=== PATIENT | female | born 1965 | race Caucasian/White ===

== ENCOUNTER 2022-09-05 18:59 | Emergency (ER) | payer OTHER ==
[2022-09-05] MEDS ORDERED: Zofran 4 MG/2 ML VIAL ONE (19:02)
[2022-09-05] MEDS ORDERED: Hydromorphone 1 mg/ml Injection ONE ×2 (19:02→20:11)
[2022-09-05] MEDS ORDERED: Zofran 4 MG/2 ML VIAL IV ONE (19:06)
[2022-09-05] MEDS ORDERED: Hydromorphone 1 mg/ml Injection IV ONE ×2 (19:06→20:10)
--- NOTE | 2022-09-05 19:38 | ERPHSYRPT ---
- History of Present Illness Time Seen by Provider: 09/05/22 19:10 Source: patient Exam Limitations: no limitations Patient Subjective Stated Complaint: PT HERE FOR PAIN TO LEFT LEG AFTER A TRACTOR BUCKET FELL ON HER LEG SMASHING IT AGAINIST A LOG, NO OVER INJURY Triage Nursing Assessment: PT ALERT, ARRIVED PER WC, RESP EASY,SKIN W/D/P. 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 She complains of pain in the proximal left femur. She recently completed radiation for breast cancer. Method of Injury: direct blow Occurred: just prior to arrival Quality: constant Severity of Pain-Max: severe Severity of Pain-Current: moderate Lower Extremities Pain: thigh: left (There is an abrasion type injury across the proximal third of the thigh. Neurovascular tendon are intact.) Modifying Factors: Improves With: nothing Associated Symptoms: other (Severe pain.) Allergies/Adverse Reactions: No Known Drug Allergies Allergy (Unverified 09/05/22 19:01) Hx Tetanus, Diphtheria Vaccination/Date Given: No Hx Influenza Vaccination/Date Given: No Hx Pneumococcal Vaccination/Date Given: No Immunizations Up to Date: Yes Travel Risk - International Travel Have you traveled outside of the country in past 3 weeks: No - Coronavirus Screening Are you exhibiting any of the following symptoms?: No - Vaccine Status Have you recieved a Covid-19 vaccination: No - Review of Systems Constitutional: No Fever, No Chills Eyes: No Symptoms Ears, Nose, & Throat: No Symptoms Respiratory: No Cough, No Dyspnea Cardiac: No Chest Pain, No Edema, No Syncope Abdominal/Gastrointestinal: No Abdominal Pain, No Nausea, No Vomiting, No Diarrhea Genitourinary Symptoms: No Dysuria Musculoskeletal: No Back Pain, No Neck Pain Skin: No Rash Neurological: No Dizziness, No Focal Weakness, No Sensory Changes Psychological: No Symptoms Endocrine: No Symptoms All Other Systems: Reviewed and Negative - Past Medical History Pertinent Past Medical History: Yes Female Reproductive Disorders: Breast Cancer Other Medical History: RADIATION FOR BREAST CA - Past Surgical History Past Surgical History: Yes Gastrointestinal: Appendectomy, Cholecystectomy Musculoskeletal: Orthopedic Surgery Female Surgical History: Lumpectomy, Other Other Surgical History: LOWER LEFT LEG ,FEET, - Social History Smoking Status: Current every day smoker Exposure to second hand smoke: Yes Drug Use: none Patient Lives Alone: No - Nursing Vital Signs Nursing Vital Signs: Initial Vital Signs Temperature 96.8 F 09/05/22 19:01 Pulse Rate 113 H 09/05/22 19:01 Respiratory Rate 18 09/05/22 19:01 Blood Pressure 177/65 09/05/22 19:01 O2 Sat by Pulse Oximetry 97 09/05/22 19:01 Pain Scale Pain Intensity 8 - Physical Exam General Appearance: moderate distress, alert Eyes, Ears, Nose, Throat Exam: moist mucous membranes Neck Exam: non-tender, supple Cardiovascular/Respiratory Exam: chest non-tender, normal breath sounds, regular rate/rhythm, no respiratory distress Gastrointestinal/Abdominal Exam: non-tender, guarding Back Exam: normal inspection, No vertebral tenderness Hips Exam: right: non-tender, normal inspection, normal range of motion, left: bone tenderness, ecchymosis, limited range of motion, pain, soft tissue tenderness, swelling Legs Exam: bilateral leg: non-tender, normal inspection, normal range of motion Knees Exam: bilateral knee: non-tender, normal inspection, normal range of motion Ankle Exam: bilateral ankle: non-tender, normal inspection, normal range of motion Foot Exam: bilateral foot: non-tender, normal inspection, normal range of motion Neuro/Tendon Exam: normal sensation, normal motor functions Mental Status Exam: alert, oriented x 3, cooperative Skin Exam: normal color, warm, dry SpO2: 97 - Course Nursing assessment & vital signs reviewed: Yes - Radiology Exams Hip X-ray Interpretation: Negative Femur X-ray Interpretation: Negative Ordered Tests: Active Orders 24 hr Category Date Time Status IV Insertion STAT Care 09/05/22 19:06 Active FEMUR Stat Exams 09/05/22 19:07 Taken HIP UNI (2V) INCL PEL IF DONE Stat Exams 09/05/22 19:07 Taken Medication Summary Discontinued Medications Generic Name Dose Route Start Last Admin Trade Name Freq PRN Reason Stop Dose Admin Hydromorphone HCl Confirm 09/05/22 19:02 Hydromorphone 1 Mg/1ml Inj 1 Mg/Ml Syringe Administered 09/05/22 19:03 Dose 1 mg .ROUTE .STK-MED ONE Hydromorphone HCl 1 mg 09/05/22 19:06 09/05/22 19:08 Hydromorphone 1 Mg/1ml Inj 1 Mg/Ml Syringe IV 09/05/22 19:07 1 mg STAT ONE Administration Hydromorphone HCl 1 mg 09/05/22 20:10 09/05/22 20:12 Hydromorphone 1 Mg/1ml Inj 1 Mg/Ml Syringe IV 09/05/22 20:11 1 mg STAT ONE Administration Hydromorphone HCl Confirm 09/05/22 20:11 Hydromorphone 1 Mg/1ml Inj 1 Mg/Ml Syringe Administered 09/05/22 20:12 Dose 1 mg .ROUTE .STK-MED ONE Ondansetron HCl Confirm 09/05/22 19:02 Ondansetron Hcl 4 Mg/2 Ml Vial Administered 09/05/22 19:03 Dose 4 mg .ROUTE .STK-MED ONE Ondansetron HCl 4 mg 09/05/22 19:06 09/05/22 19:08 Ondansetron Hcl 4 Mg/2 Ml Vial IV 09/05/22 19:07 4 mg STAT ONE Administration - Progress Progress: improved - Departure Departure Disposition: Home Clinical Impression: Crushing injury of left thigh Condition: Stable Critical Care Time: No Instructions: Contusion (DC) Prescriptions: Hydrocodone/Acetaminophen [Hydrocodone-Acetamin 5-325 mg] 1 tab PO Q6HPRN PRN 3 Days #12 tablet MDD 4 PRN Reason: Pain
[2022-09-05] MEDS ORDERED: NORCO 5/325 MG PO ONE ×2 (20:44→21:06)
[2022-09-05] MEDS ORDERED: NORCO 5/325 MG ONE ×2 (20:45→21:07)
[2022-09-05 21:04] VITALS: BP 108/79; PULSE 85; O2SAT 94
--- NOTE | 2022-09-06 07:47 | XRAY ---
Indication: Pain following trauma. Comparison: None Single AP pelvis and 2 view left hip demonstrates mild osteopenia and mild lower lumbar degenerative spondylosis. No other bony, articular, or soft tissue abnormalities.
--- NOTE | 2022-09-06 07:48 | XRAY ---
Indication: Pain following trauma. Comparison: None 2 view left femur demonstrates mild osteopenia and moderate tricompartmental knee degenerative changes. No other bony, articular, or soft tissue abnormalities. Comment: Preliminary interpretation made by [facility]. No critical discrepancy.
== END 2022-09-05 21:20 | disposition home or self-care (01) ==
LOC: ED 18:59
DX: S77.12XA Crushing injury of left thigh, initial encounter (principal); W23.0XXA Caught, crushed, jammed, or pinched between moving objects, initial encounter; Y92.007 Garden or yard of unspecified non-institutional (private) residence as the place of occurrence of the external cause; M79.652 Pain in left thigh; Z72.0 Tobacco use; Z79.891 Long term (current) use of opiate analgesic; Z28.310 Unvaccinated for COVID-19
CPT/HCPCS: 36000; 73502; 73552; 96374; 96375; 96376; 99284; J1170; J2405; A9270-GY